=== PATIENT | female | born 1945 | race Caucasian/White ===

== ENCOUNTER 2018-12-23 20:16 | Emergency (ER) | payer OTHER ==
[~2018-12-23] VITALS: Ht 162.6 cm; Wt 77.1 kg
[2018-12-23 20:37] VITALS: BP 121/80
== END 2018-12-23 23:56 | disposition left against medical advice (07) ==
LOC: ER 20:16 → EDBD 20:16 → ER 23:56
DX: F10.10 Alcohol abuse, uncomplicated (principal); R42 Dizziness and giddiness; Z53.21 Procedure and treatment not carried out due to patient leaving prior to being seen by health care provider
CPT/HCPCS: 93005